=== PATIENT | male | born 1970 | race Hispanic/Latino ===

== ENCOUNTER 2024-06-13 21:46 | Emergency (ER) | payer MEDICARE ==
[~2024-06-13] VITALS: Ht 175.3 cm; Wt 100.7 kg
[2024-06-13 22:01] VITALS: TEMP 98.9
[2024-06-13 22:11] LABS: BASOPHILS # (AUTO) 0.03 K/uL (0.00-0.20); BASOPHILS % (AUTO) 0.4 % (0.0-5.0); EOSINOPHILS # (AUTO) 0.18 K/uL (0.00-0.70); EOSINOPHILS % (AUTO) 2.6 % (0.0-8.0); HEMATOCRIT 29.2 % (42-54); IMMATURE GRANULOCYTE ABSOLUTE 0.02 K/uL (0-1); LYMPHOCYTES # (AUTO) 1.3 K/uL (1.0-4.8); LYMPHOCYTES % (AUTO) 18.9 % (21.0-51.0); MEAN CORPUSCULAR HEMOGLOBIN 32.3 pg (27.0-33.0); MEAN CORPUSCULAR HGB CONC 32.9 g/dL (32.0-36.0); MEAN CORPUSCULAR VOLUME 98.3 fL (79-99); MONOCYTES # (AUTO) 0.5 K/uL (0.1-1.0); NEUTROPHILS % (AUTO) 70.8 % (40.0-77.0); PLATELET COUNT (AUTO) 140 K/uL (130-400); RED BLOOD CELL COUNT(AUTO) 2.97 MIL/uL (4.50-6.20); WHITE BLOOD COUNT (AUTO) 7.1 K/uL (4.8-10.8)
[2024-06-13] MEDS: Solu-medROL 125MG VIAL IVP ONE (22:11)
[2024-06-13 22:21] LABS: POTASSIUM 3.7 mmol/L (3.5-5.1)
[2024-06-13] MEDS: BUDESONIDE 0.5 MG/2 ML INH IH ONE (22:28)
[2024-06-13] MEDS: IpraTROPium/alBUTERol SULFATE 3 ML SOLUTION IH ONE (22:28)
[2024-06-13 22:29] VITALS: PULSE 68; RESP 16
[2024-06-13 22:31] LABS: B-TYPE NATRIURETIC PEPTIDE 983 pg/mL (0-100)
[2024-06-13 22:33] VITALS: BP 154/78; PULSE 69; RESP 20; O2SAT 96
[2024-06-13 22:34] LABS: INFLUENZA TYPE A Negative For Type A (NEGATIVE); INFLUENZA TYPE B Negative For Type B (NEGATIVE)
[2024-06-13 22:36] LABS: SARS-CoV-2, RNA, NAAT NEGATIVE SARS CoV-2 (NEGATIVE)
[2024-06-14] MEDS ORDERED: BUDESONIDE 0.5 MG/2 ML INH IH SCH (06:00)
== END 2024-06-13 22:57 | disposition left against medical advice (07) ==
LOC: EDH 21:46
DX: J96.00 Acute respiratory failure, unspecified whether with hypoxia or hypercapnia (principal); I12.0 Hypertensive chronic kidney disease with stage 5 chronic kidney disease or end stage renal disease; E11.22 Type 2 diabetes mellitus with diabetic chronic kidney disease; N18.6 End stage renal disease; Z99.2 Dependence on renal dialysis; Z79.51 Long term (current) use of inhaled steroids; Z20.822 Contact with and (suspected) exposure to COVID-19
CPT/HCPCS: 99285; 96374; 71045; 87635; 84484; 80048; 83880; 85025; 87804 ×2; 83605; 36415; 93005; 94640; J2919